=== PATIENT | male | born 1945 | race Caucasian/White ===

== ENCOUNTER 2018-06-26 07:44 | Day surgery (SDC) | payer OTHER ==
[2018-06-26] MEDS ORDERED: diphenhydrAMINE 25 MG CAP PO ONE ×2 (07:55→08:27)
[2018-06-26] MEDS ORDERED: FAMOTIDINE 20 MG TAB PO ONE (07:55)
[2018-06-26] MEDS ORDERED: NS 1,000 ML IV ONE (07:55)
[2018-06-26] MEDS ORDERED: ASPIRIN EC 325 MG TAB PO ONE ×2 (07:55→08:27)
[2018-06-26] MEDS ORDERED: DIAZEPAM 5 MG TAB PO ONE (07:55)
[2018-06-26] MEDS ORDERED: FAMOTIDINE 20 MG TAB ONE (08:27)
[2018-06-26] MEDS ORDERED: DIAZEPAM 5 MG TAB ONE (08:28)
[2018-06-26 08:39] LABS: PLATELET COUNT 210 10^3/uL (150-400)
[2018-06-26] MEDS ORDERED: IOPAMIDOL (ISOVUE-370) 150 ML BTL IV ONE (08:46)
[2018-06-26] MEDS ORDERED: LIDOCAINE 1% 300 MG/30 ML SDV ONE (08:46)
[2018-06-26] MEDS ORDERED: MIDAZOLAM 2 MG/2 ML VIAL ONE (08:46)
[2018-06-26] MEDS ORDERED: fentaNYL 100 MCG/2 ML INJ ONE (08:46)
[2018-06-26 08:50] LABS: INR 1.82 (0.83-1.16); PROTIME(PATIENT) 21.2 SEC (12.0-15.0)
--- NOTE | 2018-06-26 08:50 | PDPROPOC ---
Sedation Plan of Care Sedation Plan of Care: vital signs stable, mental status noted, patient educated of risks, benefits, alternatives, patient can tolerate sedation ASA Classification: ASA 2 Planned drugs: fentanyl, midazolam Mallampati Score: Class 1 Mallampati Reference Image: Patient passed 3-3-2 rule?: Yes
--- NOTE | 2018-06-26 08:50 | PDHPUP ---
History & Physical Update H&P update statement: This history and physical update is based on an assessment of the patient which was completed after admission or registration (within 24 hours), but prior to the surgery/procedure. H&P update: H&P reviewed & patient examined, no change in patient's condition since H&P completed
--- NOTE | 2018-06-26 10:08 | PDDXCAT ---
Diagnostic Cath Note - . Date: 06/26/18 Napper Runner: Yvette High-risk criteria on non-invasive testing: stress-induced moderate-size multiple perfusion defects - Procedure Access: right groin Procedure: left heart catheterization, coronary angiography, left ventriculogram - Materials Left Heart Cath size: 6F Left Heart Cath materials: standard multipack (JL4, JR4, pigtail) - Findings-Left Heart Catheterization LM: Short, bifurcating into the LAD and LCX. No luminal irregularities were noted. LAD: Medium diameter vessel with two smallish Diagonals. Minor, 10% luminal irregularities were noted in the mid portion of the LAD. Wrap around to the apex. LCX: Medium diameter vessel with a very small OM1 and a principal OM2. Vast majority of the LCX diameter is transferred into the OM2. No luminal irregularities were noted. RCA: Dominant vessel to the PDA. Medium diameter vessel without luminal irregularities noted. EDP: 27 mm Hg LVEF: 65 Wall motion: normal wall motion Complications: none Estimated blood loss: <50ml Closure method: Angioseal Assessment: Patient is a 72 y/o male with history of "blood clots" for which he is on coumadin, asthma (with chronic theophylline use), but no CAD, with abnormal stress testing. Angiography today without appreciable CAD noted. Normal LVEF. Normal wall motion. Plan: Follow up with cardiology in one week. Continue medical therapy as at present. Annual FLP assessment. Intervention: None
[2018-06-26] MEDS ORDERED: OXYCODONE/APAP 5/325 TAB PO PRN (10:12)
[2018-06-26] MEDS ORDERED: ONDANSETRON 4 MG/2 ML VIAL IVP PRN (10:12)
[2018-06-26] MEDS ORDERED: ATROPINE SULFATE 1 MG/10 ML SYR IVP PRN (10:12)
[2018-06-26] MEDS ORDERED: NITROGLYCERIN 0.4 MG BTL SL PRN (10:12)
[2018-06-26] MEDS ORDERED: HYDROCODONE/APAP 5/325 TAB PO PRN (10:12)
--- NOTE | 2018-06-26 16:34 | CPEKG ---
Test Reason : OPEN Blood Pressure : / mmHG Vent. Rate : 070 BPM Atrial Rate : 070 BPM P-R Int : 109 ms QRS Dur : 161 ms QT Int : 429 ms P-R-T Axes : -07 -65 067 degrees QTc Int : 463 ms Atrial-paced complexes RBBB and LAFB Probable left ventricular hypertrophy Confirmed by Feliberto Malik ([id number]) on 06/26/2018 4:34:01 PM Referred By: Confirmed By:Feliberto Malik
== END 2018-06-26 13:10 | disposition home or self-care (01) ==
LOC: FCATH 07:44
PROVIDERS: ATTEND Internal Medicine Cardiovascular Disease
DX: R94.39 Abnormal result of other cardiovascular function study (principal); I10 Essential (primary) hypertension; E78.5 Hyperlipidemia, unspecified; Z95.0 Presence of cardiac pacemaker; Z86.711 Personal history of pulmonary embolism; Z79.01 Long term (current) use of anticoagulants
CPT/HCPCS: C1760; J1644; J2250; J3010; Q9967